=== PATIENT | female | born 1970 | race Two or more races ===

== ENCOUNTER 2023-06-18 21:44 | Emergency (ER) | payer OTHER ==
[~2023-06-18] VITALS: Ht 165.1 cm; Wt 83.0 kg
[2023-06-18 21:53] VITALS: BP 162/78; RESP 20; O2SAT 5
[2023-06-19] MEDS ORDERED: HYDROcodone-ACET 5/325MG TAB PO ONE (00:15)
[2023-06-19 01:34] LABS: Basophils # (auto) 0 10 ^3/uL (0-0.2); Basophils % (auto) 0.3 % (0.0-2.0); Eosinophils # (auto) 0.2 10 ^3/uL (0-0.8); Eosinophils % (auto) 2.8 % (0.0-7.0); Hematocrit 39.6 % (36.0-46.0); Hemoglobin 13.2 g/dL (12.2-16.2); Lymphocytes # (auto) 1.9 10 ^3/uL (0.4-5.4); Lymphocytes % (auto) 21.8 % (10.0-50.0); Mean Corpuscular Hemoglobin 29.5 pg (28.0-32.0); Mean Corpuscular Hgb Conc. 33.2 g/dL (32.0-36.0); Mean Corpuscular Volume 88.7 fL (80.0-100.0); Monocytes # (auto) 0.6 10 ^3/uL (0-1.3); Neutrophils # (auto) 5.8 10 ^3/uL (1.6-8.6); Neutrophils % (auto) 68.1 % (37.0-80.0); Red Blood Cells 4.47 10^6/uL (4.0-5.20); Red Cell Distribution Width 14.1 % (11.8-14.3); White Blood Cell 8.5 10^3/uL (4.4-10.8)
[2023-06-19 01:53] LABS: Albumin 3.7 g/dL (3.4-5.0); Calcium 9.1 mg/dL (8.5-10.1); Potassium 4.2 mmol/L (3.5-5.1)
[2023-06-19 01:56] LABS: BUN/Creatinine Ratio 17.2 (10.0-20.0); Bilirubin, Total 0.3 mg/dL (0.2-1.0); Total Protein 7.7 g/dL (6.4-8.2)
[2023-06-19] MEDS ORDERED: CEFTRIAXONE SODIUM 2 GM in D5W 5% 100 ML IV ONE (02:00)
[2023-06-19] MEDS ORDERED: HYDR-4902 PO (02:05)
[2023-06-19] MEDS ORDERED: BACDST PO (02:05)
[2023-06-19] MEDS ORDERED: CLIN300C70 PO (02:05)
[2023-06-19] MEDS ORDERED: PSEU30TA3 PO (02:05)
[2023-06-19] MEDS ORDERED: cefTRIAXone SOD 1,000 MG VL IM ONE (02:45)
[2023-06-19 03:12] VITALS: PULSE 90; TEMP 98.3
== END 2023-06-19 03:13 | disposition home or self-care (01) ==
LOC: ER 21:44
DX: L03.211 Cellulitis of face (principal); J32.9 Chronic sinusitis, unspecified; E11.9 Type 2 diabetes mellitus without complications
CPT/HCPCS: 36415; 70450; 70486; 80053; 85025; 96372; 99285; J0696; J7060